=== PATIENT | female | born 1990 | race Caucasian/White ===

== ENCOUNTER → 2018-05-10 | Outpatient (CLI) | payer OTHER | LOC: M.ULTRA 13:00 | DX: N63.14 Unspecified lump in the right breast, lower inner quadrant (principal); N64.4 Mastodynia ==

== ENCOUNTER 2019-04-06 16:50 | Emergency (ER) | payer OTHER ==
[~2019-04-06] VITALS: Ht 154.9 cm; Wt 78.9 kg
[2019-04-06] MEDS ORDERED: ADDERALL 30 MG30 MG PO (17:04)
[2019-04-06 17:40] LABS: ABSOLUTE BASOPHILS 0.1 thou/uL (0.0-0.2); ABSOLUTE EOSINOPHILS 0.2 thou/uL (0.0-0.7); ABSOLUTE LYMPHOCYTES 1.9 thou/uL (0.8-5.3); ABSOLUTE MONOCYTES 1.1 thou/uL (0.0-1.2); ABSOLUTE NEUTROPHILS 6.4 thou/uL (1.6-8.1); BASOPHILS 0.7 %; EOSINOPHILS 2.1 %; HEMATOCRIT 41.3 % (37.0-47.0); LYMPHOCYTES 19.7 %; MCH 31.4 pg (26.0-34.0); MCHC 33.9 g/dL (28.0-37.0); MCV 92.7 fL (80.0-100.0); MONOCYTES 11.1 %; MPV 7.2 fl. (7.2-11.1); NUCLEATED RBCS 0 /100WBC; PLATELET COUNT* 481 thou/uL (150-400); POLYS 66.4 %; RBC 4.45 mil/uL (4.20-5.00); RDW-CV 13.2 % (10.5-14.5); WBC 9.7 thou/uL (4.0-11.0)
[2019-04-06 17:50] LABS: CALCIUM 9.5 mg/dL (8.5-10.1); POTASSIUM 3.8 mmol/L (3.5-5.1)
[2019-04-06 17:54] LABS: ALBUMIN 4.2 g/dL (3.4-5.0); TOTAL BILIRUBIN 0.4 mg/dL (<0.1-1.0)
[2019-04-06 18:21] LABS: URINE BILIRUBIN NEGATIVE (Negative); URINE BLOOD NEGATIVE (Negative); URINE CLARITY CLEAR; URINE COLOR YELLOW; URINE GLUCOSE-RANDOM NEGATIVE (Negative); URINE KETONES NEGATIVE (Negative); URINE LEUKOCYTES-REFLEX NEGATIVE (Negative); URINE NITRITE-REFLEX NEGATIVE (Negative); URINE PROTEIN NEGATIVE (Negative); URINE SPECIFIC GRAVITY 1.025 (1.005-1.030); URINE UROBILINOGEN 0.2 E.U./dl (0.2-1.0)
[2019-04-06 19:16] VITALS: BP 132/77
--- NOTE | 2019-04-07 14:29 | EKG ---
[place] [address] ELECTROCARDIOGRAM REPORT Name: BECCA DAS Room: [facility]#: [id number] Admission: 04/06/19 Attend Phys: Discharge: 04/06/19 Date of : 88 Report #: [id number] THIS REPORT FOR: //name// [facility] ED Test Date: 2019-04-06 Test Time: 17:59:44 Pat Name: BECCA DAS Department: Room: Gender: F Sap Functional Analyst: CARMEN : 1990 Requested By: Desiree Stout Order Number: [id number] MD: Isael Hughes Measurements Intervals [place] Rate: 78 P: 17 CA: 136 QRS: 28 QRSD: 86 T: 24 QT: 383 QTc: 437 Interpretive Statements Sinus rhythm No previous ECG available for comparison Electronically Signed On 04-07-2019 14:29:10 CDT by Isael Hughes [email or web address] <ELECTRONICALLY SIGNED> By: Isael Hughes MD, [facility] 04/07/19 1429 1759 1759 Isael Hughes MD, FACC /EPI
== END 2019-04-06 19:18 | disposition home or self-care (01) ==
LOC: M.ERS 16:50
PROVIDERS: Nurse Practitioner Family
DX: R53.83 Other fatigue (principal); R59.1 Generalized enlarged lymph nodes; Z88.0 Allergy status to penicillin; Z88.1 Allergy status to other antibiotic agents; Z88.7 Allergy status to serum and vaccine